=== PATIENT | male | born 1965 | race American Indian/Alaskan Native ===

== ENCOUNTER 2016-10-12 07:46 | Day surgery (SDC) | payer MEDICAID ==
[~2016-10-12 07:46] MED LIST: Midazolam 1 MG/ML 2 ML SDV ONE; Propofol 200 MG/20 ML SDV ONE; fentaNYL 100 MCG/2 ML SDV ONE
[2016-10-12] MEDS ORDERED: Lactated Ringers 1,000 ML IV SCH (08:30)
[2016-10-12 10:27] VITALS: BP 151/84
--- NOTE | 2016-10-13 07:40 | OR ---
DATE OF PROCEDURE: 10/12/2016 PREOPERATIVE DIAGNOSIS: History of adenomatous colon polyps. POSTOPERATIVE DIAGNOSES: 1. Diverticulosis. 2. Small colon polyp at 30 cm from the anal verge. 3. History of adenomatous colon polyps. PROCEDURE: Colonoscopy to the cecum with biopsy resection of a small polyp at 30 cm from the anal verge. ANESTHESIA: IV anesthesia with monitored anesthesia care. INDICATION: This 51-year-old white male is referred for a colonoscopy because of a history of adenomatous colon polyps. He says the last colonoscopic exam was done about three years ago. I counseled him for the procedure including risks and alternatives and he gave his informed consent to proceed. DESCRIPTION OF PROCEDURE: The patient was placed in the left lateral decubitus position. IV anesthesia was administered by the Anesthesia Service. Time-out was held. A rectal exam was performed, which was unremarkable. The flexible video Olympus colonoscope was introduced through his anus, up his rectum, and out his colon all way to the cecum. En route, we saw multiple left-sided diverticula. There was no bleeding or inflammation associated with it. Once the cecum was reached, the scope was slowly withdrawn examining the mucosa throughout. No additional mucosal abnormalities were noted until we reached 30 cm from the anal verge. Here, we saw a small polyp, which was removed with the biopsy forceps. The scope was retroflexed in the rectum with the distal rectum appearing unremarkable. The scope was straightened and removed. He tolerated the procedure well. Danny Lance MD /[id number] MTDCalin
== END 2016-10-12 10:40 | disposition home or self-care (01) ==
LOC: JP.SDS 07:46 → EEVIPCON 09:30 → JP.SDS 10:40
PROVIDERS: ATTEND Surgery
DX: Z12.11 Encounter for screening for malignant neoplasm of colon (principal); D12.6 Benign neoplasm of colon, unspecified; K57.30 Diverticulosis of large intestine without perforation or abscess without bleeding; Z86.010 Personal history of colon polyps; Z79.899 Other long term (current) drug therapy
CPT/HCPCS: 45380; 88305; J2250; J2704; J3010; J7120

== ENCOUNTER 2016-11-13 21:17 | Emergency (ER) | payer MEDICAID ==
[2016-11-13 21:38] VITALS: BP 150/88
[2016-11-13] MEDS ORDERED: HYDROmorphone 1 MG/ML Syringe IM ONE (21:57)
--- NOTE | 2016-11-13 22:03 | EDM.PDOC ---
ED HPI GENERAL MEDICAL PROBLEM - General Chief Complaint: Upper Extremity Injury/Pain Stated Complaint: LEFT HAND MIDDLE FINGER Time Seen by Provider: 11/13/16 21:40 Source of Information: Reports: Patient History Limitations: Reports: No Limitations - History of Present Illness INITIAL COMMENTS - FREE TEXT/NARRATIVE: Patient complains of severe pain to his left middle finger. Gout flare. He reports no pain relief despite use of indomethacin. Onset Date: 11/12/16 Duration: Day(s): Location: Reports: Other (Left middle finger) Quality: Reports: Stabbing, Throbbing Severity: Severe Improves with: Reports: None Worsens with: Reports: Movement Treatments VP STRATEGY: Reports: Cold Therapy, Home Treatments, NSAIDS Left Middle Finger Pain Score (Numeric/FACES): 10 - Related Data Allergies Allergy/AdvReac Type Severity Reaction Status Date / Time No Known Allergies Allergy Verified 11/13/16 21:38 Home Meds: Home Meds Atenolol [Tenormin] 75 mg PO DAILY 10/01/13 [History] Indomethacin [Indocin] 50 mg PO TID PRN 10/01/13 [History] Levothyroxine 150 mcg PO DAILY 10/01/13 [History] Hydrocodone/Acetaminophen [Hydrocodon-Acetaminophn 10-325] 1 tab PO BID PRN 06/28 [History] Lisinopril 20 mg PO DAILY 10/10/16 [History] Triamcinolone Acetonide [Kenalog 0.1% Crm] 1 applic TOP BID 10/10/16 [History] Past Medical History - Past Health History Medical/Surgical History: Denies Medical/Surgical History Cardiovascular History: Reports: Hypertension Gastrointestinal History: Reports: Colon Polyp Musculoskeletal History: Reports: Back Pain, Chronic, Gout, Neck Pain, Chronic, RA Endocrine/Metabolic History: Reports: Hypothyroidism Dermatologic History: Reports: Other (See Below) Other Dermatologic History: rash on arms/neck - Infectious Disease History Infectious Disease History: Reports: Chicken Pox - Past Surgical History Cardiovascular Surgical History: Reports: None Neurological Surgical History: Reports: Other (See Below) Other Neurological Surgeries/Procedures: spinal surgery Social & Family History - Tobacco Use Smoking Status *Q: Never Smoker Years of Tobacco use: 5 Packs/Tins Daily: 0.2 Used Tobacco, but Quit: Yes Month Tobacco Last Used: jun Second Hand Smoke Exposure: No - Caffeine Use Caffeine Use: Reports: Coffee - Alcohol Use Days Per Week of Alcohol Use: 0 - Recreational Drug Use Recreational Drug Use: No Review of Systems - Review of Systems Review Of Systems: See Below Constitutional: Denies: Chills, Diaphoresis, Fever Respiratory: Denies: Shortness of Breath, Wheezing, Cough Cardiovascular: Denies: Chest Pain, Edema, Lightheadedness, Palpitations, Syncope GI/Abdominal: Reports: No Symptoms. Denies: Constipation, Diarrhea, Nausea, Vomiting Genitourinary: Reports: No Symptoms Musculoskeletal: Reports: Other (Left finger pain) Skin: Denies: Cyanosis, Bruising, Pruritis, Rash, Erythema, Wound Neurological: Reports: No Symptoms ED EXAM, GENERAL - Physical Exam Exam: See Below Exam Limited By: No Limitations General Appearance: Alert, WD/WN, No Apparent Distress Eye Exam: Bilateral Eye: Normal Inspection, PERRL Throat/Mouth: Normal Inspection, Normal Lips, Normal Teeth, Normal Gums, Normal Oropharynx, Normal Voice, No Airway Compromise Head: Atraumatic, Normocephalic Neck: Normal Inspection, Supple, Non-Tender, Full Range of Motion Respiratory/Chest: No Respiratory Distress, Lungs Clear, Normal Breath Sounds, No Accessory Muscle Use, Chest Non-Tender Cardiovascular: Normal Peripheral Pulses, Regular Rate, Rhythm, No Edema, No Gallop, No Murmur, No Rub Peripheral Pulses: 2+: Radial (L), Radial (R) GI/Abdominal: Normal Bowel Sounds, Soft, Non-Tender, No Distention, No Abnormal Bruit, No Mass Back Exam: Normal Inspection, Full Range of Motion Extremities: Normal Inspection, Normal Range of Motion, Non-Tender, No Pedal Edema, Normal Capillary Refill, Other (with exception to painful left middle finger, decrease ROM, movement withpain. No erythema or sign of infection noted. ) Neurological: Alert, Oriented, CN II-XII Intact, Normal Cognition, No Motor/ Sensory Deficits Skin Exam: Warm, Dry, Intact, Normal Color, No Rash Lymphatic: No Adenopathy Course - Vital Signs Last Recorded V/S: Last Vital Signs Temp 37.2 C 11/13/16 21:36 Pulse 65 11/13/16 21:36 Resp 19 11/13/16 21:36 BP 150/88 H 11/13/16 21:36 Pulse Ox 99 11/13/16 21:36 - Orders/Labs/Meds Meds: Medications Discontinued Medications Generic Name Dose Route Start Last Admin Trade Name Pedro PRN Reason Stop Dose Admin Hydromorphone HCl 1 mg 11/13/16 21:57 11/13/16 22:04 Dilaudid IM 11/13/16 21:58 1 mg ONETIME ONE Administration - Re-Assessments/Exams Free Text/Narrative Re-Assessment/Exam: 11/13/16 22:03 Patient has been appropriate with narcotic medication per review of use in data base. He will be provided dilaudid 1mg IM. Departure - Departure Time of Disposition: 22:03 Disposition: Home, Self-Care 01 Condition: good Clinical Impression: Gout attack - Discharge Information Referrals: Mindy Rehman PA [Primary Care Provider] - Forms: ED Department Discharge Additional Instructions: Work on following the proper diet to assist with prevention of gout flares. Take medication as prescribed. Follow up with your primary care provider in the next 7 days for additional pain medication or use of a preventative medication for your gout. Return for worsening or concerns. You can also try diclofenac gel as directed to the finger for pain. - Assessment/Plan Assessment:: Gout flare left middle finger Plan: Patient advised to work on following the proper diet to assist with prevention of gout flares. Take medication as prescribed. Follow up with primary care provider in the next 7 days for additional pain medication or use of a preventative medication for gout. Return for worsening or concerns. He was provided a written script and can also try diclofenac gel as directed to the finger for pain.
== END 2016-11-13 22:35 | disposition home or self-care (01) ==
LOC: JP.ED 21:17
DX: M10.9 Gout, unspecified (principal); I10 Essential (primary) hypertension; E03.9 Hypothyroidism, unspecified; Z79.899 Other long term (current) drug therapy; Z98.890 Other specified postprocedural states
CPT/HCPCS: 96372; 99283; J1170

== ENCOUNTER 2018-10-09 15:22 | Emergency (ER) | payer MEDICAID ==
[2018-10-09] MEDS ORDERED: Metoprolol Tartrate 5 MG/5 ML SDV IVPUSH ONE (16:13)
[2018-10-09] MEDS ORDERED: Ketorolac 30 MG/ML SDV IVPUSH ONE (16:13)
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
--- NOTE | 2018-10-09 17:32 | CRLCT ---
INDICATION: Severe headache. COMPARISON: None available. TECHNIQUE: CT examination of the head was performed with 3 mm thick axial sections without intravenous contrast. Images were obtained from the vertex of the skull through the skull base, and I examined the images with the brain and bone windows. Please note that all CT scans at this facility use dose modulation, iterative reconstruction, and/or weight-based dosing when appropriate to reduce radiation dose to as low as reasonably achievable. FINDINGS: : The brain is normal in appearance for the patient`s age on today`s study, with no sign of mass lesion, mass effect, hemorrhage, or edema. The ventricles and sulci are normal in appearance for the patient`s age. The visualized portions of the orbits are normal in appearance. Mucous retention cysts are seen in both inferior maxillary sinuses. The rest of the visualized portions of the paranasal sinuses and mastoids are clear. The osseous structures are normal in their appearance with no sign of abnormality in the skull base or calvarium. IMPRESSION: Normal noncontrast CT of the head for the patient`s age. Nothing seen to explain the patient`s headaches. Incidental note made of mucous retention cysts in the inferior maxillary sinuses bilaterally. Please note that all CT scans at this facility use dose modulation, iterative reconstruction, and/or weight-based dosing when appropriate to reduce radiation dose to as low as reasonably achievable. Dictated by Sohail Cano MD @ Oct 09 2018 5:28PM Signed by Dr. Sohail Cano @ Oct 09 2018 5:30PM
[2018-10-09] MEDS ORDERED: methylPREDNISolone Sodium Succinate 125 MG/2 ML SDV IVPUSH ONE (17:40)
[2018-10-09 17:49] VITALS: BP 189/102
== END 2018-10-09 18:05 | disposition home or self-care (01) ==
LOC: JP.ED 15:22
DX: G44.209 Tension-type headache, unspecified, not intractable (principal); M19.90 Unspecified osteoarthritis, unspecified site; I10 Essential (primary) hypertension; Z79.899 Other long term (current) drug therapy
CPT/HCPCS: 36415; 70450; 80048; 85025; 85651; 96374; 96375; 99284; J1885; J2930; J3490

== ENCOUNTER 2019-11-22 09:26 | Day surgery (SDC) | payer MEDICAID ==
[2019-11-22] MEDS ORDERED: Sodium Chloride 0.9% 1,000 ML IV SCH (10:00)
[2019-11-22] MEDS ORDERED: fentaNYL 100 MCG/2 ML SDV ONE (10:28)
[2019-11-22] MEDS ORDERED: Midazolam 1 MG/ML 2 ML SDV ONE (10:28)
[2019-11-22] MEDS ORDERED: Propofol 200 MG/20 ML SDV ONE ×2 (10:28→10:45)
[2019-11-22 11:53] VITALS: BP 157/101; PULSE 70
--- NOTE | 2019-11-22 19:44 | OR ---
DATE OF PROCEDURE: 11/22/2019 SURGEON: Tavon Umaña MD PROCEDURE: Colonoscopy. FINDINGS: Sigmoid colon polyp, approximately 5 mm, completely removed using cold biopsy forceps. COMPLICATION: None. GOSPEL SINGER: None. PREOPERATIVE DIAGNOSIS: History of colon polyps. POSTOPERATIVE DIAGNOSIS: History of colon polyps. RISKS: Risks, benefits, alternatives, and limitations including, but not limited to infection, bleeding, and perforation were explained to the patient, who wished to proceed. PROCEDURE IN DETAIL: The patient was placed in left lateral decubitus position. Digital rectal exam was performed without abnormality. Scope was introduced and advanced atraumatically to the ileocecal valve. Scope was brought back through the ascending, transverse, descending colon, and retroflexed. The aforementioned polyp was identified and completely removed. The patient did have diverticulosis which would be described as mild, mostly limited to the sigmoid colon in a classic pattern without diverticulitis or bleeding. No abnormalities on retroflexion. The patient tolerated the procedure well. Tavon Umaña MD /[id number]
== END 2019-11-22 11:55 | disposition home or self-care (01) ==
LOC: JP.SDS 09:26
PROVIDERS: ATTEND Surgery
DX: Z12.11 Encounter for screening for malignant neoplasm of colon (principal); K63.5 Polyp of colon; K57.30 Diverticulosis of large intestine without perforation or abscess without bleeding; E66.9 Obesity, unspecified; I10 Essential (primary) hypertension; E03.9 Hypothyroidism, unspecified; Z86.010 Personal history of colon polyps; Z68.38 Body mass index [BMI] 38.0-38.9, adult
CPT/HCPCS: 45380; J2250; J2704; J3010; J7030; 88305

== ENCOUNTER 2020-08-03 06:57 | Day surgery (SDC) | payer MEDICAID ==
[2020-08-03] MEDS ORDERED: Midazolam 1 MG/ML 2 ML SDV ONE (07:27)
[2020-08-03] MEDS ORDERED: Propofol 200 MG/20 ML SDV ONE ×2 (07:27→08:36)
[2020-08-03] MEDS ORDERED: fentaNYL 100 MCG/2 ML SDV ONE (07:27)
[2020-08-03] MEDS ORDERED: Sodium Chloride 0.9% 1,000 ML IV SCH (07:45)
[2020-08-03] MEDS ORDERED: ceFAZolin 2 GM in Premix Bag 1 BAG IV ONE (08:30)
[2020-08-03] MEDS ORDERED: Lidocaine 0.5% 50 ML SDV ONE (08:46)
[2020-08-03] MEDS: Bupivacaine 0.5% 30 ML SDV ONE ×2 (08:49→08:57)
[2020-08-03] MEDS: Lidocaine 1% 20 ML MDV ONE ×2 (08:50→08:57)
[2020-08-03 10:10] VITALS: BP 163/92; PULSE 55
--- NOTE | 2020-08-03 14:51 | OR ---
DATE OF PROCEDURE: 08/03/2020 SURGEON: Tavon Umaña MD PROCEDURE: Excision of hard white solid nodule over the right 4th metacarpal involving the extensor digitorum tendon. COMPLICATION: None. FUNERAL DRIVER: None. PREOPERATIVE DIAGNOSIS: Right hand lesion. POSTOPERATIVE DIAGNOSIS: Right hand lesion. RISKS: Risks, benefits, alternatives, and limitations including, but not limited to infection, bleeding, chronic wounds, chronic pain, tendon or ligament injury resulting in inability to move or have sensation in the aforementioned finger/hand. The patient understands these risks and wishes to proceed. PROCEDURE IN DETAIL: The patient was placed in supine position. The patient underwent a [place]ck block and then the incision was made. The patient felt what was concerning that there was a second lesion medial to this. Therefore, a transverse incision was made to evaluate and remove both of these possible lesions, however, only 1 large solid lesion was identified intraoperatively. With respect to anatomy, this lesion was on the dorsal surface, approximately 1.5 cm proximal to the metacarpophalangeal joint. This was not involving any joint structures. Rather this lesion appeared to be originating from the extensor digitorum tendon as described above. Once this incision was made, blunt dissection was carried down to the area. Originally, this was felt to be most consistent on manual palpation with a cyst or lipoma. However, this was clearly not the case. This was then circumnavigated using blunt dissection and carefully excised off the tendon. The lesion itself was approximately 1 cm in size. This left a gap in this tendon and this tendon was then reattached using 3-0 Vicryl sutures. The subcutaneous tissues were closed with 3-0 Vicryl and the skin was closed with 4-0 nylon interrupted sutures. The patient tolerated the procedure well. Tavon Umaña MD /[id number]
== END 2020-08-03 10:21 | disposition home or self-care (01) ==
LOC: JP.SDS 06:57
PROVIDERS: ATTEND Surgery
DX: M67.843 Other specified disorders of tendon, right hand (principal); I10 Essential (primary) hypertension
CPT/HCPCS: 88305; J0690; J2250; J2704; J3010; J3490; J7030

== ENCOUNTER 2020-09-23 09:46 | Emergency (ER) | payer MEDICAID ==
--- NOTE | 2020-09-23 10:15 | EDM.PDOC ---
ED HPI GENERAL MEDICAL PROBLEM - General Chief Complaint: Chest Pain Stated Complaint: CHEST PAIN Time Seen by Provider: 09/23/20 09:50 Source of Information: Reports: Patient History Limitations: Reports: No Limitations - History of Present Illness INITIAL COMMENTS - FREE TEXT/NARRATIVE: 55-year-old male with no prior cardiac issues presents with intermittent chest pain for 2 months. It seems to occur mostly when he is lying on his right side, it is a sharp pain that lasts several minutes and usually resolves with a "couple of deep breaths". It does not seem to be related to activity, yesterday he shoveled his driveway and sidewalk and he regularly goes for walks with his granddaughter and does not get pain. He does have significant risk factors with hypertension and he is overweight. This morning when he woke up he had the pain, it seemed to be more central and right-sided and lasted longer so he thought he should get it checked out. No significant shortness of breath, diaphoresis, nausea or vomiting or radiation of pain into the arms or neck. On arrival to the emergency room he had no pain. Onset: Unknown/Unsure Duration: Chronic (Symptoms have been going on for several months), Waxing/Waning Location: Reports: Chest Associated Symptoms: Reports: No Other Symptoms. Denies: Fever/Chills, Shortness of Breath, Syncope chest Pain Score (Numeric/FACES): 3 - Related Data Allergies Allergy/AdvReac Type Severity Reaction Status Date / Time No Known Allergies Allergy Verified 09/23/20 09:50 Home Meds: Home Meds Indomethacin [Indocin] 50 mg PO TID PRN 10/01/13 [History] Levothyroxine 137 mcg PO DAILY 10/01/13 [History] Lisinopril 20 mg PO DAILY 10/10/16 [History] Metoprolol Tartrate 50 mg PO BID 10/09/18 [History] allopurinoL [Zyloprim] 100 mg PO DAILY 11/20/19 [History] Past Medical History - Past Health History Medical/Surgical History: Denies Medical/Surgical History Cardiovascular History: Reports: High Cholesterol, Hypertension Respiratory History: Reports: Other (See Below) Other Respiratory History: lung nodule is watching Gastrointestinal History: Reports: Colon Polyp Musculoskeletal History: Reports: Back Pain, Chronic, Gout, Neck Pain, Chronic, Osteoarthritis Other Musculoskeletal History: right finger cyst Neurological History: Reports: None Endocrine/Metabolic History: Reports: Hypothyroidism, Obesity/BMI 30+ Dermatologic History: Reports: Psoriasis, Other (See Below) Other Dermatologic History: rash on arms/neck - Infectious Disease History Infectious Disease History: Reports: Chicken Pox, Shingles - Past Surgical History Respiratory Surgical History: Reports: None GI Surgical History: Reports: Cholecystectomy, Colonoscopy, EGD Neurological Surgical History: Reports: Other (See Below) Other Neurological Surgeries/Procedures: spinal surgery Musculoskeletal Surgical History: Reports: None Dermatological Surgical History: Reports: None Social & Family History - Family History Family Medical History: No Pertinent Family History - Tobacco Use Tobacco Use Status *Q: Never Tobacco User Second Hand Smoke Exposure: No - Caffeine Use Caffeine Use: Reports: Coffee Other Caffeine Use: 1 cup coffee - Alcohol Use Days Per Week of Alcohol Use: 0 - Recreational Drug Use Recreational Drug Use: Yes Recreational Drug Type: Reports: Other (see below) Other Recreational Drug Type: CBD oil for back pain Recreational Drug Use Frequency: Daily ED ROS GENERAL - Review of Systems Review Of Systems: See Below Constitutional: Denies: Fever, Chills, Malaise HEENT: Reports: No Symptoms Respiratory: Reports: Pleuritic Chest Pain (Right-sided). Denies: Shortness of Breath Cardiovascular: Reports: Chest Pain (Right-sided and this morning central and right parasternal). Denies: Dyspnea on Exertion, Palpitations GI/Abdominal: Reports: No Symptoms Musculoskeletal: Reports: Other (Chronic back pain) Skin: Reports: No Symptoms Neurological: Denies: Headache, Syncope Psychiatric: Reports: No Symptoms ED EXAM, GENERAL - Physical Exam Exam: See Below Exam Limited By: No Limitations General Appearance: Alert, No Apparent Distress Eye Exam: Bilateral Eye: Normal Inspection Head: Atraumatic Neck: Supple, Non-Tender Respiratory/Chest: No Respiratory Distress, Lungs Clear, Other (I cannot reproduce chest wall tenderness with palpation) Cardiovascular: Regular Rate, Rhythm. No: Extra Beats GI/Abdominal: Soft, Non-Tender Extremities: Normal Inspection. No: Pedal Edema Neurological: Alert, Oriented Psychiatric: Normal Affect, Normal Mood Skin Exam: Warm, Dry #1 Interpretation EKG Date: 09/23/20 Rhythm: NSR QRS: RBBB ST-T: Normal Course - Vital Signs Last Recorded V/S: Last Vital Signs Temp 97.7 F 09/23/20 09:59 Pulse 61 09/23/20 10:41 Resp 16 09/23/20 10:41 BP 166/86 H 09/23/20 10:41 Pulse Ox 96 09/23/20 10:41 - Orders/Labs/Meds Orders: Active Orders 24 hr Category Date Time Status EKG 12 Lead [EK] Routine Ther 09/23/20 10:05 Ordered Labs: Laboratory Tests 09/23/20 09/23/20 Range/Units 10:10 10:10 WBC 7.9 (4.5-11.0) K/uL RBC 4.94 (4.30-5.90) M/uL Hgb 14.6 (12.0-15.0) g/dL Hct 45.6 (40.0-54.0) % MCV 92 (80-98) fL MCH 30 (27-31) pg MCHC 32 (32-36) % Plt Count 282 (150-400) K/uL Neut % (Auto) 64 (36-66) % Lymph % (Auto) 24 (24-44) % [place] % (Auto) 6 (2-6) % Eos % (Auto) 6 H (2-4) % Baso % (Auto) 1 (0-1) % Sodium 141 (140-148) mmol/L Potassium 5.1 (3.6-5.2) mmol/L Chloride 102 (100-108) mmol/L Carbon Dioxide 27 (21-32) mmol/L Anion Gap 12.5 (5.0-14.0) mmol/L BUN 18 (7-18) mg/dL Creatinine 1.1 (0.8-1.3) mg/dL Est Cr Clr Drug Dosing 76.50 mL/min Estimated GFR (MDRD) > 60 (>60) Glucose 234 H (74-106) mg/dL Calcium 9.4 (8.5-10.1) mg/dL Total Bilirubin 0.6 (0.2-1.0) mg/dL AST 48 H (15-37) U/L ALT 77 (12-78) U/L Alkaline Phosphatase 91 (46-116) U/L Troponin I < 0.017 (0.000-0.056) ng/mL Total Protein 8.2 (6.4-8.2) g/dL Albumin 3.8 (3.4-5.0) g/dL Globulin 4.4 H (2.3-3.5) g/dL Albumin/Globulin Ratio 0.9 L (1.2-2.2) - Re-Assessments/Exams Free Text/Narrative Re-Assessment/Exam: 09/23/20 10:20 EKG was done on arrival that showed evidence of a left anterior fascicular block and a right bundle branch block. There were no previous EKGs to compare, however he did have surgery 2 months ago and there is a telemetry strip that looks normal. 1 view chest x-ray, CBC, CMP and troponin were drawn. Patient was kept on cardiac monitoring. 09/23/20 10:45 Patient remained comfortable while in the emergency room without symptoms, troponin was 0 and the rest of his labs are reassuring other than a glucose of 234. This is not fasting but he did mention that his last glucose was "borderline" and he likely is developing early type 2 diabetes. I asked him to recheck at the clinic next week in a fasting state to discuss with his primary provider stress test and further evaluation or possible treatment for type 2 diabetes onset. He can continue activity as tolerated. Chest x-ray showed possibly some chronic fibrotic changes which apparently are stable, nothing acute. Appointment was made at 1:30 in the afternoon with Chaya Rehman to discuss his symptoms and labs. Departure - Departure Time of Disposition: 10:57 Disposition: Home, Self-Care 01 Clinical Impression: Atypical chest pain - Discharge Information Instructions: Nonspecific Chest Pain, Adult, [id number] Referrals: Mindy Rehman PA [Primary Care Provider] - Forms: ED Department Discharge Care Plan Goals: Recheck with Chaya Rehman next week, 1:30 in the afternoon on Monday. Try not to eat anything for at least 5 or 6 hours prior to your appointment. At that time you can discuss a stress test to further evaluate your intermittent chest discomfort, and discuss further work-up to evaluate for possible early diabetes and any other concerns you may have. Return to the emergency room at any time if pain recurs and is persistent, especially for shortness of breath or sweating, or you develop other concerns. Sepsis Event Note (ED) - Evaluation Sepsis Screening Result: No Definite Risk - Focused Exam Vital Signs: Vital Signs Temp Pulse Resp BP Pulse Ox 09/23/20 10:41 61 16 166/86 H 96 09/23/20 09:59 97.7 F 67 17 184/90 H 99 - My Orders Last 24 Hours: My Active Orders 09/23/20 10:05 EKG 12 Lead [EK] Routine - Assessment/Plan Last 24 Hours: My Active Orders 09/23/20 10:05 EKG 12 Lead [EK] Routine
[2020-09-23 10:42] VITALS: BP 166/86; PULSE 61
--- NOTE | 2020-09-23 11:19 | CR ---
CHEST: Portable 09/23/2020 at 10:26 AM CLINICAL HISTORY:Left chest pain COMPARISON:CT June 2020 FINDINGS: The heart size, pulmonary vascularity and hilar structures are normal. No infiltrate effusion or pneumothorax is seen. Lung markings are exaggerated by patient's large size. Patient has prominent fibrosis better demonstrated on recent CT IMPRESSION: No acute cardiopulmonary process. Pulmonary fibrosis is previously described
== END 2020-09-23 10:57 | disposition home or self-care (01) ==
LOC: JP.ED 09:46
DX: R07.89 Other chest pain (principal); I10 Essential (primary) hypertension; M10.9 Gout, unspecified; E03.9 Hypothyroidism, unspecified; E66.9 Obesity, unspecified; Z68.39 Body mass index [BMI] 39.0-39.9, adult; Z79.899 Other long term (current) drug therapy
CPT/HCPCS: 36415; 71045; 71045-26; 80053; 84484; 85025; 93005; 99285-25

== ENCOUNTER 2020-10-15 06:27 | Day surgery (SDC) | payer MEDICAID ==
[2020-10-15] MEDS ORDERED: Sodium Chloride 0.9% 1,000 ML IV SCH (07:00)
[2020-10-15] MEDS ORDERED: Propofol 200 MG/20 ML SDV ONE (07:25)
[2020-10-15] MEDS ORDERED: Midazolam 1 MG/ML 2 ML SDV ONE (07:25)
[2020-10-15] MEDS ORDERED: fentaNYL 100 MCG/2 ML SDV ONE (07:25)
[2020-10-15 09:03] VITALS: BP 134/89; PULSE 72
--- NOTE | 2020-10-15 12:30 | OR ---
DATE OF PROCEDURE: 10/15/2020 SURGEON: Tavon Umaña MD PROCEDURE: Esophagogastroduodenoscopy. FINDINGS: Normal esophagogastroduodenoscopy. COMPLICATIONS: None. 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 PREOPERATIVE DIAGNOSIS: Dysphagia. POSTOPERATIVE DIAGNOSIS: Dysphagia. RISKS: Risks, benefits, alternatives, and limitations including, but not limited to infection, bleeding, perforation, false positives, and false negatives were explained to the patient and he wished to proceed. PROCEDURE IN DETAIL: The patient was placed in left lateral decubitus position. The EGD scope was introduced and advanced atraumatically to the second part of the duodenum. No evidence of duodenitis or ulceration. No old or new blood. No masses. No polyps. The stomach and duodenum did not show any ulceration, nor gastritis, nor abnormality. The GE junction was normal. The esophagus was normal. The patient tolerated the procedure well. The patient has been scheduled for manometry. Tavon Umaña MD /[id number]
== END 2020-10-15 09:09 | disposition home or self-care (01) ==
LOC: JP.SDS 06:27
PROVIDERS: ATTEND Surgery
DX: R13.10 Dysphagia, unspecified (principal); I10 Essential (primary) hypertension; E78.5 Hyperlipidemia, unspecified; E66.01 Morbid (severe) obesity due to excess calories; M10.9 Gout, unspecified; Z68.37 Body mass index [BMI] 37.0-37.9, adult
CPT/HCPCS: J2250; J2704; J3010; J7030